=== PATIENT | female | born 1995 | race American Indian/Alaskan Native ===

== ENCOUNTER 2019-03-11 16:04 | Emergency (ER) | payer BC ==
--- NOTE | 2019-03-11 16:50 | Event Note ---
ED Screening Note Date of service: 03/11/19 Time: 16:47 ED Screening Note: This a 23 y.o. F. that presents to the ER with sore throat and exudates. Patient states she was seen by Urgent Care and had a negative rapid strep yesterday. Patient states spouse is having penile discharge and not sure if this may be STD related. States currently on menses and can't tell if discharge. This initial assessment/diagnostic orders/clinical plan/treatment(s) is/are subject to change based on patients health status, clinical progression and re- assessment by fellow clinical providers in the ED. Further treatment and workup at subsequent clinical providers discretion. Patient/guardian urged not to elope from the ED as their condition may be serious if not clinically assessed and managed. Initial orders include:
[2019-03-11] MEDS ORDERED: ROCEPHIN IM ONE (17:43)
[2019-03-11] MEDS ORDERED: FLAGYL PO ONE (17:43)
[2019-03-11] MEDS ORDERED: DIFLUCAN PO ONE (17:43)
[2019-03-11] MEDS ORDERED: XYLOCAINE 1% MPF 5 mL INFILTRATI ONE (17:43)
[2019-03-11] MEDS ORDERED: ZITHROMAX PO ONE (17:43)
[2019-03-11] MEDS ORDERED: ZOFRAN ODT PO ONE (17:43)
--- NOTE | 2019-03-11 17:43 | Emergency Department Report ---
ED Dysuria HPI - HPI Chief Complaint: Urogenital-Female Stated Complaint: STD CHECK/THROAT PAIN Time Seen by Provider: 03/11/19 16:47 Duration: 1 Day Severity: Mild Symptoms: Dysuria: No, Frequency: No, Suprapubic Pain: No, Flank Pain: No, Fever: No, Hematuria: No, Abdominal Pain: No, Previous UTI's: No Other History: 23 YO WITH KNOWN STI EXPOSURE. WHITE ORAL LESIONS. DENIES VAG DC ON INTERVIEW. HERE WITH BF WHO HAS PENILE DISCHARGE. ED Review of Systems ROS: Stated complaint: STD CHECK/THROAT PAIN Other details as noted in HPI Comment: All other systems reviewed and negative ED Past Medical Hx - Past Medical History Previous Medical History?: No - Surgical History Past Surgical History?: Yes Additional Surgical History: LEG SURGERY - Social History Smoking Status: Current Every Day Smoker Substance Use Type: Alcohol - Medications Home Medications: Home Medications Medication Instructions Recorded Confirmed Last Taken Type Hyoscyamine Subl [Levsin Sl 0.125 0.125 mg SL Q4HR PRN #20 tablet 11/05/18 Unknown Rx TAB] Ondansetron [Zofran ODT TAB] 8 mg PO Q8HR #14 tab.rapdis 11/05/18 Unknown Rx Dysuria Exam - Exam General: Vital signs noted. No distress. Alert and acting appropriately. Exam: Yes Moist Mucous Membranes, No CVA Tenderness, No Abdominal Tenderness, No Rigidity or Guarding ED Course Vital Signs 03/11/19 16:47 Temperature 98.5 F Pulse Rate 71 Respiratory 16 Rate Blood Pressure 141/95 O2 Sat by Pulse 100 Oximetry ED Medical Decision Making - Medical Decision Making KNOWN EXPOSURE EMPIRIC TREATMENT DC HOME WITH OBGYN FOLLOW UP Labs 03/11/19 17:30 Urine Color Yellow Urine Turbidity Clear Urine pH 6.0 Ur Specific [place] 1.031 H Urine Protein 30 mg/dl Urine Glucose (UA) Neg Urine Ketones Tr Urine Blood Mod Urine Nitrite Neg Urine Bilirubin Neg Urine Urobilinogen 4.0 Ur Leukocyte Esterase Sm Urine WBC (Auto) 13.0 H Urine RBC (Auto) 36.0 U Epithel Cells (Auto) 1.0 Urine Bacteria (Auto) 1+ Urine Mucus 3+ Urine HCG, Qual Negative - Differential Diagnosis STI EXPOSURE Critical care attestation.: If time is entered above; I have spent that time in minutes in the direct care of this critically ill patient, excluding procedure time. ED Disposition Clinical Impression: Exposure to STD Disposition: DC-01 TO HOME OR SELFCARE Is pt being admited?: No Does the pt Need Aspirin: No Condition: Stable Instructions: Safe Sex (ED) Additional Instructions: SAFE SEX FOLLOW UP WITH OBGYN Referrals: DUNIA RODRÍGUEZ MD [Staff Physician] - 3-5 Days Time of Disposition: 17:46
[2019-03-11 17:52] LABS: Bacteria,Urine 1+ /HPF (Negative); Bilirubin,Urine NEG (Negative); Blood,Urine MOD (Negative); Color,Urine Yellow (Yellow); Mucus,Urine 3+ /HPF
[2019-03-11 17:53] LABS: HCG Qualitative,Urine Negative (Negative)
[2019-03-11 18:40] VITALS: BP 140/70
== END 2019-03-11 18:41 | disposition home or self-care (01) ==
LOC: ED 16:04
DX: A64 Unspecified sexually transmitted disease (principal); F17.200 Nicotine dependence, unspecified, uncomplicated
CPT/HCPCS: 81001; 81025; 87086; 96372; 99283; J0696; 87076; 87186; Q0162